=== PATIENT | male | born 1975 | race Caucasian/White ===

== ENCOUNTER 2016-10-12 19:36 | Emergency (ER) | payer SELFPAY ==
[~2016-10-12] VITALS: Ht 185.4 cm; Wt 109.1 kg
[2016-10-12 19:44] VITALS: BP 167/105; PULSE 97; RESP 16; O2SAT 96
[2016-10-12] MEDS ORDERED: LORazepam 2 mg Tablet PO ONE (20:25)
[2016-10-12] MEDS ORDERED: Haloperidol 5 mg/mL Inj ONE (20:27)
--- NOTE | 2016-10-12 20:58 | ED.REPORT ---
HPI-Psychiatric Illness Date of Service Oct 12, 2016 ED Provider: John Scott DO The patient is a 41 year old male who presents to the ED by his girlfriend de to alcohol intoxication and statements of self-harm. Per pt's girlfriend, he was making statements that he was going to kill himself by shooting himself with a gun. He has a hx of suicidal statements. Pt admits to drinking alcohol today. Pt denies suicidal intentions but states that he will, "kill anyone who gets in his way." Pt is hostile and uncooperative at the ED. Nursing Notes Stated Complaint: INTOXICATED,SUICIDAL EXPRESSIONS Chief Complaint: Substance Abuse Nursing Notes Reviewed: Yes Allergies: Coded Allergies: No Known Allergies (Unverified , 10/12/16) General Time Seen by MD: 20:49 Chief Complaint Aggressive behavior, Suicidal ideation, Other (intoxicated ) Hx Obtained From: Patient Arrived By: Walk-in Onset Occurred: Just prior to arrival Symptom Duration: Since onset Severity: Current: No pain currently Recent Healthcare: No recent doctor visit, No recent hospitalization Similar Sx Previous: No Risk-Psychiatric Illness Suicide Risk Stratification Suicide Risk Factors - Adult: : Access to firearms: Alcohol use: Prior psych admission: Substance abuse RF Statements: Risk factors reviewed Past Medical History Past Medical History Notes: Prior admissions for mental illness. Review of Systems Unable to Obtain ROS Intoxicated (he did answer a few questions however this caused him to become more and more upset.) Constitutional: Denies: Fever Cardiovascular: Denies: Chest pain GI: Denies: Abdominal pain Neurologic: Reports: Slurred speech (secondary to intoxication), Denies: Focal weakness Psychiatric: Reports: Homicidal ideation, Stress, Suicidal ideation, Unable to control self Physical Exam Initial Vital Signs Vital Signs (First) Date Time Temp Pulse Resp B/P Pulse Ox O2 Delivery O2 Flow Rate FiO2 10/12/16 19:44 36.4 97 16 167/105 96 Room Air Initial VS: Reviewed Head / Eyes: Atraumatic, Normocephalic ENT: Mucous membranes moist, Conjunctiva normal Neck: Supple Abdomen / GI: Soft, Non-tender Back: No CVA tenderness Lymphatic: No lymphadenopathy Extremities: No swelling, No tenderness Skin: Warm Neurologic: No motor deficits, No sensory deficits, Cerebellar NL, Gait NL Abnormal Mood/Affect: Positive: Anxious, Irritable, Labile, Pressured speech Abnormal Thinking / Perception: Positive: Homicidal, no plan, Insight abnormal , Suicidal, no plan, Tangential thinking Head / Eyes: No nystagmus, No periorbital redness, No periorbital swelling, No photophobia, No scleral icterus, Conjunctiva NL Interpretation & Diagnostics Lab Results Interpretation Result Diagram: 10/12/16211810/12/162118 Test 10/12/16 21:19 White Blood Count 4.4th/mm3 (3.8-10.1) Red Blood Count 4.83mil/mm3 (4.40-5.80) Hemoglobin 15.3g/dL (13.8-17.2) Hematocrit 44.0% (41.0-50.0) Mean Corpuscular Volume 91.1fL (81-100) Mean Corpuscular Hemoglobin 31.7pg (27.0-35.0) Mean Corpuscular Hemoglobin Concent 34.8% (32.0-37.0) Red Cell Distribution Width 14.9% (12.3-15.4) Platelet Count 205bil/L (150-400) Neutrophils (%) (Auto) 44.0% (40-74) Lymphocytes (%) (Auto) 45.5% (14-46) Monocytes (%) (Auto) 8.4% (4-12) Eosinophils (%) (Auto) 1.6% (0-5) Basophils (%) (Auto) 0.5% (0-3) Sodium Level 148mEq/L (134-144) Potassium Level 3.6mEq/L (3.5-5.2) Chloride Level 107mEq/L (97-108) Carbon Dioxide Level 23mmol/L (18-29) Blood Urea Nitrogen 10mg/dL (6-24) Creatinine 0.94mg/dL (0.76-1.27) Estimat Glomerular Filtration Rate 93mL/min (>59) Glucose Level 112mg/dL (60-99) Calcium Level 8.9mg/dL (8.5-10.1) Total Bilirubin 0.2mg/dL (0.0-1.2) Aspartate Amino Transf (AST/SGOT) 57U/L (0-50) Alanine Aminotransferase (ALT/SGPT) 59U/L (0-44) Alkaline Phosphatase 51U/L (25-150) Total Protein 7.1g/dL (6.4-8.4) Albumin 4.1g/dL (3.4-5.0) Hold Acevedo Top Tube Received (Received) Alcohols 365mg/dL (0-10) Re-Eval/Medical Decision Med Decision/Clinical Course 41-year-old male presents to the emergency department acutely intoxicated and suffering from suicidal and homicidal ideations. Evidently he has been drinking alcohol today. He admits to this. He then felt very sad and he told the female acquaintance of his that drove him to the emergency department that he was going to kill himself. Evidently he has a history of suicidal ideations in the past. He has been admitted to psych facilities. He told me this information himself. Shortly after starting to talk to me he became hostile and aggressive. He told me that he wanted his clothes and that he was going to leave and he is going to kill anyone that gets in his way. He did admit to feeling suicidal. He did state that he is going to kill himself. I tried every possible thing I could think of to get him to calm down and cooperate with this. He was initially in an open sierra, then he started to become combative , threatening and punching the bed. He was threatening to abscond from the ER to go hurt people and himself. He was placed back in a secure room. This did not seem to help. I had everyone leave the room and try to talk to him myself. This did not work at all. Eventually zayra french was called. I offered Bacilio sedatives and he accepted these. He lied down on the stretcher and he was put in 4-point restraints without any difficulty. Again he was put in 4-point restraints because he was becoming aggressive, combative and starting to punch the wall. He was medicated with Benadryl, Haldol and Ativan. This had an excellent effect. He slept soundly. He was hemodynamically stable. He was never hypoxic or hypotensive. We are able to quickly get him out of restraints. His arms were rotated with the restraints every hour. He is currently at 0226 out of restraints. He is arousable. He is still too intoxicated to give a good psychiatric history. He does not show any signs of head injury or any traumatic injuries whatsoever. Care will be signed out to Dr. Evan John at the end of my shift. Re-Evaluation/Progress #1: Time of Eval: 07:35 Re-Evaluation/Progress Note: Pt is aggressive and hostile towards staff. He again repeats that he will, "kill anyone who gets in his way." Pt is eventually convinced to lay down and is placed under sedation and restraints. Re-Evaluation/Progress #2: Time of Eval: 11:21 Re-Evaluation/Progress Note: Pt rechecked. Restraints have been removed. He is resting comfortably and not combative. Re-Evaluation/Progress #3: Time of Eval: 00:15 Re-Evaluation/Progress Note: Pt rechecked. He is resting comfortably. His vital signs are stable. The door to his room is left open. Counseled Regarding: Diagnosis, Lab results, Need for follow-up, When/why to return to ED Discharge & Departure Shift Change Sign-Out Patient Care Transferred: Yes Discussed Complaint(s): Yes Input from Consult: Mental health or [facility]PH[employer] [employer] evaluation will be pending Response to Therapy: Improved Impression: Primary Impression: Suicidal ideations Additional Impression: Alcohol abuse Disposition: Home Discharge Condition All VS Reviewed: Yes Condition: Stable Referrals: OTHER,PHYSICIAN (PCP) [facility] Care Transferred to: Dr. Elton John Care Transferred at: 03:01 Bee Attestation Portion of this note were transcribed by Patty Kim. I, Dr. Scott, personally performed the history, physical exam, and medical decision-making: I reviewed and confirmed the accuracy for the information in the transcribed note. Signed by: bee Hansen, 10/13/16 0300 copies to: Bacilio Cabrera MD; [facility] John Scott DO Oct 12, 2016 20:58 Patty Kim Oct 12, 2016 21:06 ISAIAS GARCIA Oct 13, 2016 09:45
[2016-10-12 21:29] LABS: BASOPHILS % (AUTO) 0.5 % (0-3); EOSINOPHILS % (AUTO) 1.6 % (0-5); MONOCYTES % (AUTO) 8.4 % (4-12); Mean Corpuscular Hemoglobin 31.7 pg (27.0-35.0); Mean Corpuscular Volume 91.1 fL (81-100); Platelet Count 205 bil/L (150-400)
[2016-10-12 22:30] VITALS: BP 150/90; PULSE 90; RESP 16; O2SAT 94
[2016-10-13 01:42] VITALS: BP 108/75; PULSE 94; RESP 14; O2SAT 96
[2016-10-13 06:22] VITALS: BP 130/82; PULSE 90; RESP 16; O2SAT 97
--- NOTE | 2016-10-13 09:42 | PCM.EDPN ---
ED Note Date of Service Oct 13, 2016 I assumed care of this patient from Dr. John at 6 AM. The patient had initially been seen by Dr. Scott. I interviewed the patient at approximately 920. His alcohol level is now below 0.08. He states that he has no thoughts of suicide or harming others now and believes that his statements to the of that affect earlier this evening had to do with the alcohol intoxication. He says that he has been dealing with alcohol addiction for over 10 years now and struggles with that obviously. He says that he is aware of all current resources and has access to same. He says that he does not need any further assistance from us today would like to go home. This seems safe and reasonable to me now. Assessment: Alcohol intoxication-resolved Suicidal ideation-resolved Homicidal ideation-resolved. Plan: Discharge to home follow up with outpatient resources as desired. Jose Benites MD Oct 13, 2016 09:42
[2016-10-13 10:47] VITALS: BP 135/82; PULSE 89; RESP 18; O2SAT 96
== END 2016-10-13 11:33 | disposition home or self-care (01) ==
LOC: SED 19:36
DX: R45.851 Suicidal ideations (principal); F10.10 Alcohol abuse, uncomplicated
CPT/HCPCS: 36415; 80053; 82075; 85025; 96372; 99285; G0480; J1200; J1630; J2060

== ENCOUNTER 2016-12-17 20:14 | Emergency (ER) | payer OTHER ==
[~2016-12-17] VITALS: Ht 185.4 cm; Wt 105.0 kg
[2016-12-17 20:18] VITALS: BP 168/119; PULSE 116; RESP 22; O2SAT 97
--- NOTE | 2016-12-17 22:10 | ED.REPORT ---
HPI-Overdose/Alcohol Toxicity Date of Service Dec 17, 2016 ED Provider: Kennedy Hope MD The patient is a 41 year old male with a history of anxiety, depression, alcohol abuse, suicidal ideation, and PE on warfarin who presents to the ED requesting assistance with alcohol detox. The patient's last alcoholic drink was 5-6 hours ago. He has been drinking 750mL whiskey per day for the past three weeks. The patient has one previous unsuccessful detox attempt in inpatient rehab in [place] 2.5 years ago. The patient also reports cough and suicidal ideation today. He has reportedly been "suicidal for his whole life," but admits to taking all of his Librium, Wellbutrin, and lorazepam in a suicide attempt approximately 6 hours ago. The patient has vomited since then. He reports many recent stressors including family problems and getting fired. The patient denies other symptoms at this time. He has not been taking his Warfarin recently. Nursing Notes Stated Complaint: PRE DETOX/SKAGIT RECOVERY Chief Complaint: Substance Abuse Nursing Notes Reviewed: Yes Allergies: Coded Allergies: hydrocodone (Verified Allergy, Unknown, itching, 12/17/16) Scheduled Bupropion ER (Wellbutrin SR) 100 Mg Tablet.er 100 MG PO BID General Time Seen by Provider: 21:40 Chief Complaint Other (Alcohol Detox Request) Hx Obtained From: Patient Arrived By: Walk-in Onset Occurred: 5 - 8 hours ago Symptom Duration: Since onset Severity: Current: No pain currently Severity: Maximum: No pain Pertinent Negative: Relieved by nothing Related History: Reports: Alcoholism, Anxiety, Depression, Previous psych hosp , Suicidal attempt Immunizations: Unknown Recent Healthcare: No recent doctor visit Past Medical History Past Medical History Notes: Prior admissions for mental illness. Past Medical History PE on warfarin Depression Anxiety Alcohol abuse Suicidal ideation s/p suicide attempt Past Surgical History None reported Smoking History Unknown if Ever Smoker Social History Alcohol Use: >5 per day Other Social History: Good social support Ambulatory Status Independent Review of Systems Review of Systems Note: + Alcohol detox assistance request Constitutional: Denies: Fever Respiratory: Reports: Non-productive cough, Denies: Shortness of breath GI: Reports: Vomiting, Denies: Diarrhea Psychiatric: Reports: Suicidal ideation Complete sys rev & neg: except as marked. Physical Exam Initial Vital Signs Vital Signs (First) Date Time Temp Pulse Resp B/P Pulse Ox O2 Delivery O2 Flow Rate FiO2 12/17/16 20:18 37.1 116 22 168/119 97 Room Air Initial VS: Reviewed, Vital signs abnormal Head / Eyes: Atraumatic, Normocephalic ENT: Conjunctiva normal, No scleral icterus Skin: Warm, Dry, No cyanosis General/Constitutional: Awake, Alert, Well hydrated Appearance / Presentation: Positive: Intoxicated Smells of alcohol Disheveled Respiratory / Chest: Breath sounds NL, Breath sounds = bilat, No respiratory distress Cardiovascular: Heart rate NL, Regular rhythm, Heart sounds NL Abdomen: Soft, Non-tender No organomegaly Neurologic: Oriented X3 Speech: Positive: Slurred (Mild) Psychiatric: Not homicidal Abnormal Mood/Affect: Positive: Pressured speech (Mild) Abnormal Thinking / Perception: Positive: Suicidal, with plan (Chronic) Intoxicated Interpretation & Diagnostics URINE DRUG SCREEN: + Benzodiazepines Otherwise Negative BREATHALYZER: 254 Lab Results Interpretation Result Diagram: 12/17/167 12/17/16 2217 Test 12/17/16 22:04 12/17/16 22:17 Hold Urine Received (Received) White Blood Count 7.0th/mm3 (3.8-10.1) Red Blood Count 4.92mil/mm3 (4.40-5.80) Hemoglobin 15.8g/dL (13.8-17.2) Hematocrit 44.3% (41.0-50.0) Mean Corpuscular Volume 90.0fL (81-100) Mean Corpuscular Hemoglobin 32.1pg (27.0-35.0) Mean Corpuscular Hemoglobin Concent 35.7% (32.0-37.0) Red Cell Distribution Width 13.3% (12.3-15.4) Platelet Count 198bil/L (150-400) Prothrombin Time 9.9sec (8.1-12.5) Prothromb Time International Ratio 0.93ratio Sodium Level 136mEq/L (134-144) Potassium Level 3.4mEq/L (3.5-5.2) Chloride Level 91mEq/L (97-108) Carbon Dioxide Level 21mmol/L (18-29) Blood Urea Nitrogen 8mg/dL (6-24) Creatinine 0.81mg/dL (0.76-1.27) Estimat Glomerular Filtration Rate 111mL/min (>59) Glucose Level 116mg/dL (60-99) Calcium Level 8.7mg/dL (8.5-10.1) Total Bilirubin 0.5mg/dL (0.0-1.2) Aspartate Amino Transf (AST/SGOT) 119U/L (0-50) Alanine Aminotransferase (ALT/SGPT) 66U/L (0-44) Alkaline Phosphatase 57U/L (25-150) Total Protein 7.5g/dL (6.4-8.4) Albumin 4.4g/dL (3.4-5.0) Salicylates Level 3.0ug/mL (30-250) Acetaminophen Level 15.0ug/mL Rx (10-25) Alcohols 298mg/dL (0-10) Lab values outside NL range: no clinical significance. Lab Results Interpretation: Mild transaminase elevation, alcohol level of 0.298, urine drug screen shows only benzos consistent with prescribed medications. ECG Interpretation ECG Interpretation: Sinus tachycardia rate 102 Time: 21:53 Interpreted by: ED physician Re-Eval/Medical Decision Med Decision/Clinical Course 41-year-old male chronic long-term alcohol dependence presents with desire to detox. He has a bed at [facility]. Clearance was done. His alcohol level is less than the required 0.250. He was given a dose of Ativan here in the emergency room and discharged with an Ativan prepack. He was transported by taxi cab to [facility]. Source of Hx: Old records Re-Evaluation/Progress : Time of Eval: 23:53 Patient Status: Condition improved Re-Evaluation/Progress Note: Discussed with patient lab results, diagnosis, and plan for discharge to [facility] at 0100. Follow-up and return to the ER instructions given. Patient agrees with plan for care and all questions were addressed. Consultation : Call Returned at: 22:40 Practicing Md Anesthesiologist: Agrees with eval, Agrees with plan Note: [facility]: Bed available for patient at 01:00 Counseled Regarding: Diagnosis, Lab results, Need for follow-up, When/why to return to ED Discharge & Departure Impression: Primary Impression: Alcohol withdrawal Complication of substance-induced condition: uncomplicated Qualified Code: F10.230 - Alcohol dependence with withdrawal, uncomplicated )( Condition at Discharge: No danger to self, No danger to others, No homicidal ideation, Clear for alcohol rehab Disposition: Home Discharge Condition All VS Reviewed: Yes Condition: Improved Patient Instructions: Alcohol Withdrawal (ED) Additional Instructions: There are no significant lab abnormalities at the present time. Go directly to [facility] ([facility]ox). You were given an Ativan (lorazepam) tapering dose prepack to be administered by [facility] staff as needed for withdrawal. No Wellbutrin for a day or 2. Recommend that you restart your warfarin ( Coumadin) in the next few days when you are sober. Return to the emergency room if you have significant withdrawal symptoms which are not controlled by the lorazepam taper. Albuterol inhaler 2 puffs every 4-6 hours as needed for cough , congestion, or wheezing. Referrals: OTHER,PHYSICIAN (PCP) (Family) Scribe Attestation Portions of this note were transcribed by Isabel Boles. I, Dr. Hope, personally performed the history, physical exam, and medical decision-making; I reviewed and confirmed the accuracy of the information in the transcribed note. Signed by: Zaid Smith, 12/18/2016, 02:10 Kennedy Hope MD Dec 17, 2016 22:10 ISABEL BOLES Dec 17, 2016 22:22
[2016-12-17 22:37] LABS: Mean Corpuscular Hemoglobin 32.1 pg (27.0-35.0)
[2016-12-17 23:08] LABS: INR 0.93 ratio
[2016-12-17] MEDS ORDERED: _LORazepam 2 MG Tablet PO SCH (23:55)
[2016-12-18] MEDS ORDERED: Albuterol-Ipratropium 3 mL Inhalation Solution NEB ONE
[2016-12-18] MEDS ORDERED: LORazepam 2 mg Tablet PO ONE (00:05)
[2016-12-18 00:06] VITALS: PULSE 110; RESP 18; O2SAT 98
[2016-12-18] MEDS ORDERED: _Proair 200 Puff/8.5 GM Inhaler INHALATION PRN (00:30)
[2016-12-18 00:41] VITALS: BP 143/103; PULSE 116; RESP 17; O2SAT 96
[2016-12-18] MEDS ORDERED: BUPR100T7 PO (00:47)
== END 2016-12-18 00:52 | disposition home or self-care (01) ==
LOC: SED 20:14
DX: F10.230 Alcohol dependence with withdrawal, uncomplicated (principal); T42.4X2A Poisoning by benzodiazepines, intentional self-harm, initial encounter; T43.292A Poisoning by other antidepressants, intentional self-harm, initial encounter; X58.XXXA Exposure to other specified factors, initial encounter; Y92.9 Unspecified place or not applicable; Y93.89 Activity, other specified; Y99.8 Other external cause status; R05 Cough; F41.9 Anxiety disorder, unspecified; F32.9 Major depressive disorder, single episode, unspecified; Y90.8 Blood alcohol level of 240 mg/100 ml or more; Z86.711 Personal history of pulmonary embolism; Z91.5 Personal history of self-harm; Z79.01 Long term (current) use of anticoagulants; Z88.5 Allergy status to narcotic agent
CPT/HCPCS: 36415; 80053; 81002; 82075; 85027; 85610; 93005; 94640; 94664; 99285; G0480; J7620